=== PATIENT | female | born 1985 | race Two or more races ===

== ENCOUNTER 2016-11-13 06:01 | Day surgery (SDC) | payer OTHER ==
[~2016-11-13 06:01] MED LIST: IV START KIT ONE; LACTATED RINGERS 1,000 ML IV SCH; LACTATED RINGERS 1,000 ML ONE; LIDOCAINE 1% 2 ML VIAL ID PRN
[2016-11-13] MEDS ORDERED: MIDAZOLAM HCL 5 MG/5 ML VIAL ONE (07:09)
[2016-11-13] MEDS ORDERED: METOCLOPRAMIDE HCL 5 MG/ML 2ML VIAL ONE (07:17)
[2016-11-13] MEDS ORDERED: PROPOFOL 20 ML IV ONE ×2 (07:32→07:40)
[2016-11-13] MEDS ORDERED: MEPERIDINE 25 MG/ML SYRINGE ONE (07:32)
[2016-11-13] MEDS ORDERED: METHYLERGONOVINE MALEATE 0.2 MG/ML 1ML AMP ONE (07:43)
[2016-11-13] MEDS ORDERED: HYDROCODONE/ACETAMINOPHEN 5/325MG TABLET PO PRN (07:59)
[2016-11-13] MEDS ORDERED: KETOROLAC TROMETHAMINE 30 MG/ML 1 ML VIAL IV PRN (07:59)
--- NOTE | 2016-11-13 10:14 | PCMBPN ---
Brief Post Op Note: Date of Procedure: 11/13/16 Start Time: 714 Preoperative Diagnosis: 1. incomplete AB Postoperative Diagnosis: 1. same Procedure: suction D+C Surgeon: Whitney Donovan MD Assist:none Anesthesia: general Findings: POC's Condition: stable Complications: none IV Fluids: 1000 mLs of LR Urine Output: 100 mLs Estimated Blood Loss: 200 mLs Procedure: patient was taken to the operating room, where general anesthesia was placed, and the patients vagina and cervix were prepped with betadine, and sterile speculum was placed in vagina, and tenaculum is placed on anterior lip of cervix, and cervix dilated to 8, and 6 soft curved suction currette introduced and uterus evacuated 3 times and one pass with sharp curette. bleeding was noted to be vigorous still so the suction was introduced twice more , and the bleeding stopped after pitocin 20 units given in IV fluids, and methergine 0.2 mg IM given. Specimens: POC's Patient taken to recovery in stable condition.
--- NOTE | 2016-11-17 14:11 | SURGPATH ---
[facility] [address] [place] [id number] Patient Name: JORGE ZAVALA MR#: [id number] : 1985 Gender: F Specimen #: [id number] Collected: 11/13/2016 Received: 11/16/2016 Reported: 11/17/2016 Submitting Phys: KOTA RODRIGUEZ Copy To Phys: [facility] Clinical History / Pre-Operative Diagnosis: MISSED Specimen Source / Surgical Procedure Performed: PRODUCTS OF CONCEPTION Interpretation: PRODUCTS OF CONCEPTION: - IMMATURE CHORIONIC VILLI, INFLAMED DECIDUA, AND GESTATIONAL ENDOMETRIUM CONSISTENT WITH PRODUCTS OF CONCEPTION. - NO SOMATIC TISSUE IDENTIFIED. - NO EVIDENCE OF MALIGNANCY. Electronically Signed Out Tate Velazquez M.D., Ph.D. Gross Description: The specimen is received in a formalin filled container labeled with the patient's name and "products of conception". An aggregate of ventura tissue admixed with hemorrhagic material is 6.0 x 4.5 x 2.5 cm. No grossly recognizable or placental tissue is appreciated. Rn Labor And Delivery tissue is submitted in cassettes A-D. Efra Aquino PKelvin Microscopic Description: Examination of multiple sections from the products of conception shows fragments of immature chorionic villi, inflamed decidua, and gestational endometrium. No somatic tissue is seen. There is no evidence of malignancy. 1: [id number] O02.1
== END 2016-11-13 10:13 | disposition home or self-care (01) ==
LOC: SUPCPDRO → SDC 06:01
PROVIDERS: ATTEND Family Medicine
PROC: 10D17ZZ Extraction of Products of Conception, Retained, Via Natural or Artificial Opening (ICD-10-PCS; principal; 2016-11-13)
DX: O03.4 Incomplete spontaneous abortion without complication (principal); F32.9 Major depressive disorder, single episode, unspecified
CPT/HCPCS: 59812; J2175; J2210; J2765; J2250; J7120